=== PATIENT | female | born 1955 | race Caucasian/White ===

== ENCOUNTER 2018-10-15 09:24 | Day surgery (SDC) | payer BC ==
[2018-10-15] VITALS (10 sets, daily range): BP systolic 101–122; BP diastolic 47–75
[~2018-10-15] VITALS: Ht 162.6 cm; Wt 59.3 kg
[2018-10-15] MEDS ORDERED: normal saline 1,000 ML IV SCH (09:40)
[2018-10-15] MEDS ORDERED: ESTR0.5T PO (10:59)
[2018-10-15] MEDS ORDERED: INSU300I SQ (10:59)
[2018-10-15] MEDS ORDERED: MAGN400C PO (10:59)
[2018-10-15] MEDS ORDERED: LEVO75TA PO (10:59)
[2018-10-15] MEDS ORDERED: ASPI-611 PO (10:59)
[2018-10-15] MEDS ORDERED: INSU200I SQ (10:59)
[2018-10-15] MEDS ORDERED: midazolam 2 mg/2 ml injection ONE (13:22)
[2018-10-15] MEDS ORDERED: iohexol 350 MG/ML 50ML vial IV ONE (13:22)
[2018-10-15] MEDS ORDERED: fentaNYL/PF 50MCG/1 ML 2ML syringe ONE (13:22)
[2018-10-15] MEDS ORDERED: LIDOcaine 1% (10mg/ml)w/preservative injection 20ml MDV ONE (13:22)
[2018-10-15] MEDS ORDERED: iohexol 350MG/ML 100ml bottle IV ONE (13:22)
[2018-10-15] MEDS ORDERED: diphenhydrAMINE 50 mg/ml inj ONE (13:42)
== END 2018-10-15 18:18 | disposition home or self-care (01) ==
LOC: SSTAY O 09:24
PROVIDERS: ATTEND Internal Medicine Cardiovascular Disease
DX: R07.9 Chest pain, unspecified (principal); E03.9 Hypothyroidism, unspecified; E11.9 Type 2 diabetes mellitus without complications; Z79.899 Other long term (current) drug therapy; Z79.82 Long term (current) use of aspirin; Z79.4 Long term (current) use of insulin; Z98.890 Other specified postprocedural states; Z88.8 Allergy status to other drugs, medicaments and biological substances
CPT/HCPCS: 36415; 82948; 85610; 93005; 93458; 99152; C1769; C1894; J1200; J1644; J2001; J2250; J3010; J7030; Q9967; A4620; A6258; C1760